=== PATIENT | female | born 1950 | race Caucasian/White ===

== ENCOUNTER 2017-06-24 17:12 | Emergency (ER) | payer MEDICARE, OTHER ==
[2017-06-24] MEDS ORDERED: Fluticasone NASAL SPRAY 50MCG* 16 gm SPRAY BTL BOTH NARES ONE (17:29)
--- NOTE | 2017-06-24 17:31 | ED ---
Throat Pain/Nasal Congestion - HPI Summary HPI Summary: 66-year-old female presents with ear fullness for the past couple days. She admits to sinus congestion. She denies any sinus pressure. She states her nose has been running and dripping down back of her throat. She states she has had a decrease in hearing. She states left is worse than right. She states that sometimes she gets a little bit of pain. She states it feels like her ears need to pop. She denies any recent infections. She denies any fevers. She denies any headache. She denies any recent illness. She denies any cough. - History of Current Complaint Chief Complaint: EDEarPain Time Seen by Provider: 06/24/17 17:20 - Allergies/Home Medications Allergies/Adverse Reactions: Allergies Allergy/AdvReac Type Severity Reaction Status Date / Time nickel Allergy Unknown Rash And Uncoded 06/24/17 17:16 Itching PMH/Surg Hx/FS Hx/Imm Hx Endocrine/Hematology History: Denies: Hx Diabetes Cardiovascular History: Denies: Hx Hypertension, Hx Pacemaker/ICD Musculoskeletal History: Denies: Hx Osteoporosis Sensory History: Reports: Hx Contacts or Glasses - READING Denies: Hx Hearing Aid Opthamlomology History: Reports: Hx Contacts or Glasses - READING Psychiatric History: Denies: Hx Panic Disorder - Surgical History Surgery Procedure, Year, and Place: TONSILLECTOMY- AGE 25. gall bladder-[facility]. bilateral carpal tunnel RELEASED-[facility]. left ankle removal of a chipped bone-1979. left shoulder decompression-[facility]. RT SHOULDER 2016 (SOMETHING WITH MUSCLES) Hx Anesthesia Reactions: No Infectious Disease History: No Infectious Disease History: Denies: Traveled Outside the [place] in Last 30 Days - Family History Known Family History: Positive: Hypertension - Social History Alcohol Use: None Substance Use Type: Reports: None Smoking Status (MU): Light Every Day Tobacco Smoker Amount Used/How Often: 1/2 PPD X 45 YEARS Have You Smoked in the Last Year: Yes Review of Systems Negative: Fever Positive: Ear Ache Negative: Chest Pain Negative: Shortness Of Breath All Other Systems Reviewed And Are Negative: Yes Physical Exam Triage Information Reviewed: Yes Vital Signs On Initial Exam: Initial Vitals Temp Pulse Resp BP Pulse Ox 98.9 F 83 19 153/122 100 06/24/17 17:14 06/24/17 17:14 06/24/17 17:14 06/24/17 17:14 06/24/17 17:14 Vital Signs Reviewed: Yes Appearance: Positive: Well-Appearing Skin: Positive: Warm, Dry Head/Face: Positive: Normal Head/Face Inspection Eyes: Positive: Normal, EOMI, NOAH, Conjunctiva Clear ENT: Positive: Pharynx normal, TMs normal - with fluid behind bilateral, TM dull , Other - cerumen right ear. Negative: TM red Respiratory/Lung Sounds: Positive: Clear to Auscultation, Breath Sounds Present Cardiovascular: Positive: Normal, RRR Musculoskeletal: Positive: Normal Neurological: Positive: Normal Psychiatric: Positive: Normal Diagnostics - Vital Signs Vital Signs Temp Pulse Resp BP Pulse Ox 06/24/17 17:14 98.9 F 83 19 153/122 100 - Laboratory Lab Statement: Any lab studies that have been ordered have been reviewed, and results considered in the medical decision making process. EENT Course/Dx - Course Course Of Treatment: 66-year-old female presents with ear fullness for the past couple days. She admits to sinus congestion. She denies any sinus pressure. She states her nose has been running and dripping down back of her throat. She states she has had a decrease in hearing. She states left is worse than right. She states that sometimes she gets a little bit of pain. She states it feels like her ears need to pop. She denies any recent infections. She denies any fevers. She denies any headache. She denies any recent illness. She denies any cough. on exam TM fluid behind that is not erthyematous, right ear wax present and was able to use tool to get wax out of right ear. will have use flonase. blood pressure is elevated so will not have use sudafed. will have follow up with primary about blood pressure. patient understand and agrees with plan. - Differential Diagnoses Differential Diagnoses: Cerumen Impaction, Otitis Externa, Otitis Media - Diagnoses Provider Diagnoses: Fluid level behind tympanic membrane, Cerumen impaction, Elevated blood pressure reading Discharge - Sign-Out/Discharge Documenting (check all that apply): Discharge - Discharge Plan Condition: Good Disposition: HOME Prescriptions: Fluticasone NASAL SPRAY 50MCG* [Flonase NASAL SPRAY 50MCG*] 2 spray BOTH NARES DAILY #1 btl Referrals: Jevon Santana MD [Primary Care Provider] - Additional Instructions: Use saline spray in nose as much as needed Use intranasal steroid one spray each nostril twice a day Take Tylenol for pain every 6 hours Follow up with primary in 7 days if no improvement Return to ED if develop any new or worsening symptoms - Billing Disposition and Condition Condition: GOOD Disposition: HOME
[2017-06-24 18:18] VITALS: BP 141/82
== END 2017-06-24 18:15 | disposition home or self-care (01) ==
LOC: ED 17:12
DX: H93.8X3 Other specified disorders of ear, bilateral (principal); H61.21 Impacted cerumen, right ear; R03.0 Elevated blood-pressure reading, without diagnosis of hypertension; F17.210 Nicotine dependence, cigarettes, uncomplicated
CPT/HCPCS: 99282